=== PATIENT | male | born 1970 | race Caucasian/White ===

== ENCOUNTER → 2024-08-26 08:25 | Outpatient (REF) | payer BC, SELFPAY | LOC: HWRAD 08:25 | PROVIDERS: ATTENDING PHYSICIAN Family Medicine | DX: R10.10 Upper abdominal pain, unspecified (principal); Z90.49 Acquired absence of other specified parts of digestive tract | CPT/HCPCS: 76700 ==

== ENCOUNTER 2024-11-29 06:33 | Day surgery (SDC) | payer BC, SELFPAY | END 2024-11-29 10:46 | disposition home or self-care (01) | LOC: GI 06:33 | PROVIDERS: ATTENDING PHYSICIAN Student in an Organized Health Care Education/Training Program; FAMILY PHYSICIAN Family Medicine | DX: Z12.11 Encounter for screening for malignant neoplasm of colon (principal); R10.11 Right upper quadrant pain; R10.13 Epigastric pain; K25.9 Gastric ulcer, unspecified as acute or chronic, without hemorrhage or perforation; K31.7 Polyp of stomach and duodenum; K31.89 Other diseases of stomach and duodenum; D12.8 Benign neoplasm of rectum; K29.50 Unspecified chronic gastritis without bleeding | CPT/HCPCS: 45380; 43239; 88305; 88342 ==

== ENCOUNTER → 2025-01-20 07:05 | Outpatient (REF) | payer BC, SELFPAY | LOC: RAD 07:05 | PROVIDERS: ATTENDING PHYSICIAN Student in an Organized Health Care Education/Training Program; FAMILY PHYSICIAN Family Medicine | DX: R10.13 Epigastric pain (principal) | CPT/HCPCS: 74177; Q9967 ==

== ENCOUNTER 2025-01-24 06:25 | Day surgery (SDC) | payer BC, SELFPAY | END 2025-01-24 11:51 | disposition home or self-care (01) | LOC: GI 06:25 | PROVIDERS: ATTENDING PHYSICIAN Student in an Organized Health Care Education/Training Program; FAMILY PHYSICIAN Family Medicine | DX: K25.3 Acute gastric ulcer without hemorrhage or perforation (principal); R10.11 Right upper quadrant pain; K31.7 Polyp of stomach and duodenum | CPT/HCPCS: 43239; 88305; 88342 ==

== ENCOUNTER → 2025-01-29 07:53 | Outpatient (REF) | payer SELFPAY | LOC: RAD 07:53 | PROVIDERS: ATTENDING PHYSICIAN Internal Medicine Cardiovascular Disease; FAMILY PHYSICIAN Family Medicine | DX: E78.2 Mixed hyperlipidemia (principal) | CPT/HCPCS: 75571 ==